=== PATIENT | female | born 1965 | race Hispanic/Latino ===

== ENCOUNTER 2021-03-20 20:14 | Inpatient (IN) | payer MEDICARE, MEDICAID ==
[2021-03-20] MEDS ORDERED: Nitroglycerin 0.4 MG TAB 1 EACH ONE ×2 (20:33→20:35)
[2021-03-20] MEDS ORDERED: Nitroglycerin 2% Ointment 1 INCH/1 GM Packet ONE (20:33)
[2021-03-20] MEDS ORDERED: Furosemide 40 MG/4 ML VIAL ONE (20:33)
[2021-03-20 20:35] LABS: #Basophils 0.1 thou/uL (0.0-0.2); #Eosinphils 0.3 thou/uL (0.0-0.7); #Lymphocytes 3.8 thou/uL (1.20-3.40); #Monocytes 0.4 thou/uL (0.11-0.59); %Basophils 0.6 % (0.0-1.0); %Eosinophils 2.2 % (0.0-10.0); %Lymphocytes 32.7 % (21.0-51.0); %Monocytes 3.5 % (0.0-10.0); Hemoglobin 15.5 g/dL (12.0-16.0); Mean Corpuscular HGB CONC 34.2 g/dL (32.0-36.0); Mean Corpuscular Hemoglobin 29.6 pg (27.0-31.0); Mean Corpuscular Volume 86.5 fL (78.0-98.0); Mean Platelet Volume 8.6 fL (7.4-10.4); Platelet Count 298 thou/uL (130-400); RBC Distribution Width 13.4 % (11.5-14.5); Red Blood Cell (RBC) Count 5.25 mill/uL (4.20-5.40); White Blood Cell (WBC) Count 11.5 thou/uL (4.8-10.8)
[2021-03-20 20:56] LABS: ALT (SGPT) 13 U/L (8-55); AST (SGOT) 13 U/L (5-34); Albumin 3.8 g/dL (3.5-5.0); Alkaline Phosphatase 137 U/L (40-110); Anion Gap 15 mmol/L (10-20); BUN (Urea Nitrogen) 18 mg/dL (9.8-20.1); Bilirubin, Total 0.8 mg/dL (0.2-1.2); Calc. Creatinine Clearance 0 mL/min (70-130); Calcium 8.9 mg/dL (7.8-10.44); Carbon Dioxide 24 mmol/L (22-29); Chloride 101 mmol/L (98-107); Globulin 3.5 g/dL (2.4-3.5); Glucose 361 mg/dL (70-105); Potassium 3.9 mmol/L (3.5-5.1); Protein, Total 7.3 g/dL (6.0-8.3); Sodium 136 mmol/L (136-145)
[2021-03-20] MEDS ORDERED: Ondansetron ODT 4 MG TAB PO PRN (22:54)
[2021-03-20] MEDS ORDERED: Ondansetron PF 4 MG/2 ML Vial IVP PRN (22:54)
[2021-03-20] MEDS ORDERED: Dextrose 5% in Water 1,000 ML IV PRN (22:54)
[2021-03-20] MEDS ORDERED: Acetaminophen 325 MG TAB PO PRN (22:54)
[2021-03-20] MEDS ORDERED: Acetaminophen 650 MG Suppository PR PRN (22:54)
[2021-03-20] MEDS ORDERED: Dextrose 50% Abboject 50 ML SYRINGE SLOW IVP PRN (22:54)
[2021-03-20 23:06] LABS: SARS-CoV-2 NAA Rapid Test Not Detected (NotDetected)
[2021-03-21 00:17] VITALS: BMI 38.2
[2021-03-21] MEDS: HumaLOG 300 UNITS/3 ML VIAL SC PRN ×4 (00:51→21:45)
[2021-03-21 06:57] LABS: #Lymphocytes 0.6 thou/uL (1.20-3.40); #Monocytes 0.1 thou/uL (0.11-0.59); %Basophils 0.2 % (0.0-1.0); %Eosinophils 0.1 % (0.0-10.0); %Lymphocytes 7.3 % (21.0-51.0); %Monocytes 1.3 % (0.0-10.0); %Neutrophils 91.1 % (42.0-75.0); Hemoglobin 13.2 g/dL (12.0-16.0); Mean Corpuscular HGB CONC 32.7 g/dL (32.0-36.0); Mean Corpuscular Hemoglobin 28.5 pg (27.0-31.0); Mean Corpuscular Volume 87.4 fL (78.0-98.0); Mean Platelet Volume 8.6 fL (7.4-10.4); Platelet Count 300 thou/uL (130-400); RBC Distribution Width 13.3 % (11.5-14.5); Red Blood Cell (RBC) Count 4.61 mill/uL (4.20-5.40); White Blood Cell (WBC) Count 8.7 thou/uL (4.8-10.8)
[2021-03-21 07:16] LABS: Anion Gap 14 mmol/L (10-20); BUN (Urea Nitrogen) 29 mg/dL (9.8-20.1); Calc. Creatinine Clearance 95 mL/min (70-130); Calcium 8.8 mg/dL (7.8-10.44); Carbon Dioxide 25 mmol/L (22-29); Chloride 99 mmol/L (98-107); Glucose 434 mg/dL (70-105); Potassium 4.1 mmol/L (3.5-5.1); Sodium 134 mmol/L (136-145)
[2021-03-21] MEDS: cefTRIAXone\\ROCEPHIN 1 GM in Sodium Chloride 0.9% 100 ML IVPB SCH (08:38)
[2021-03-21] MEDS: Furosemide 40 MG/4 ML VIAL SLOW IVP SCH (08:39)
[2021-03-21] MEDS: methylPREDNISolone Sod Succ 40 MG VIAL IVP SCH (08:39)
[2021-03-21] MEDS: Enoxaparin Sodium 40 MG/0.4 ML SYRINGE SC SCH (08:39)
[2021-03-21] MEDS: Azithromycin 500 MG in Sodium Chloride 0.9% 250 ML 250 ML IVPB SCH (11:22)
[2021-03-21] MEDS ORDERED: hydrALAZINE 20 MG/ML VIAL SLOW IVP PRN (12:52)
[2021-03-21] MEDS ORDERED: HumaLOG 300 UNITS/3 ML VIAL SC SCH (14:00)
[2021-03-21] MEDS: metFORMIN 500 MG TAB PO SCH (17:07)
[2021-03-21] MEDS: Trospium 20 MG TAB PO SCH (21:43)
[2021-03-21] MEDS: Metoprolol Tartrate 25 MG TAB PO SCH (21:43)
[2021-03-22] MEDS: HumaLOG 300 UNITS/3 ML VIAL SC PRN ×3 (06:35→21:18)
[2021-03-22] MEDS: Enoxaparin Sodium 40 MG/0.4 ML SYRINGE SC SCH (08:35)
[2021-03-22] MEDS: cefTRIAXone\\ROCEPHIN 1 GM in Sodium Chloride 0.9% 100 ML IVPB SCH (08:36)
[2021-03-22] MEDS: Furosemide 40 MG/4 ML VIAL SLOW IVP SCH (08:37)
[2021-03-22] MEDS: Atorvastatin Calcium 40 MG TAB PO SCH (08:37)
[2021-03-22] MEDS: methylPREDNISolone Sod Succ 40 MG VIAL IVP SCH (08:37)
[2021-03-22] MEDS: metFORMIN 500 MG TAB PO SCH ×2 (08:38→17:04)
[2021-03-22] MEDS: Amlodipine 10 MG TAB PO SCH (08:38)
[2021-03-22] MEDS: Trospium 20 MG TAB PO SCH ×2 (08:38→21:15)
[2021-03-22] MEDS: Metoprolol Tartrate 25 MG TAB PO SCH ×2 (08:39→21:15)
[2021-03-22] MEDS: FLUoxetine HCl 10 MG CAP PO SCH (08:39)
[2021-03-22] MEDS: Azithromycin 500 MG in Sodium Chloride 0.9% 250 ML 250 ML IVPB SCH (09:44)
[2021-03-22] MEDS ORDERED: HumaLOG 300 UNITS/3 ML VIAL SC SCH (18:00)
[2021-03-22] MEDS ORDERED: Lantus 1000 UNITS/10 ML VIAL SC SCH (20:30)
[2021-03-23] MEDS: HumaLOG 300 UNITS/3 ML VIAL SC PRN ×3 (06:04→17:41)
[2021-03-23] MEDS: FLUoxetine HCl 10 MG CAP PO SCH (09:34)
[2021-03-23] MEDS: metFORMIN 500 MG TAB PO SCH ×2 (09:35→17:45)
[2021-03-23] MEDS: Empagliflozin 10 MG TAB PO SCH (09:35)
[2021-03-23] MEDS: Amlodipine 10 MG TAB PO SCH (09:35)
[2021-03-23] MEDS: Trospium 20 MG TAB PO SCH ×2 (09:35→20:51)
[2021-03-23] MEDS: Atorvastatin Calcium 40 MG TAB PO SCH (09:36)
[2021-03-23] MEDS: Metoprolol Tartrate 25 MG TAB PO SCH ×2 (09:36→20:51)
[2021-03-23] MEDS: Furosemide 40 MG/4 ML VIAL SLOW IVP SCH (09:36)
[2021-03-23] MEDS: methylPREDNISolone Sod Succ 40 MG VIAL IVP SCH (09:36)
[2021-03-23] MEDS: HumaLOG 300 UNITS/3 ML VIAL SC SCH ×3 (09:37→17:41)
[2021-03-23] MEDS: cefTRIAXone\\ROCEPHIN 1 GM in Sodium Chloride 0.9% 100 ML IVPB SCH (09:42)
[2021-03-23] MEDS: Enoxaparin Sodium 40 MG/0.4 ML SYRINGE SC SCH (09:42)
[2021-03-23] MEDS: Azithromycin 500 MG in Sodium Chloride 0.9% 250 ML 250 ML IVPB SCH (09:43)
[2021-03-23] MEDS ORDERED: Lantus 1000 UNITS/10 ML VIAL SC SCH (21:00)
[2021-03-24 04:48] LABS: Cardiac Risk 3.3 (Less than 4.5)
[2021-03-24] MEDS: metFORMIN 500 MG TAB PO SCH (08:07)
[2021-03-24] MEDS: FLUoxetine HCl 10 MG CAP PO SCH (08:07)
[2021-03-24] MEDS: Trospium 20 MG TAB PO SCH (08:07)
[2021-03-24] MEDS: Amlodipine 10 MG TAB PO SCH (08:07)
[2021-03-24] MEDS: Metoprolol Tartrate 25 MG TAB PO SCH (08:07)
[2021-03-24] MEDS: Enoxaparin Sodium 40 MG/0.4 ML SYRINGE SC SCH (08:07)
[2021-03-24] MEDS: Furosemide 40 MG/4 ML VIAL SLOW IVP SCH (08:08)
[2021-03-24] MEDS: Atorvastatin Calcium 40 MG TAB PO SCH (08:08)
[2021-03-24] MEDS: cefTRIAXone\\ROCEPHIN 1 GM in Sodium Chloride 0.9% 100 ML IVPB SCH (08:08)
[2021-03-24] MEDS: Empagliflozin 10 MG TAB PO SCH (08:08)
[2021-03-24] MEDS: Azithromycin 500 MG in Sodium Chloride 0.9% 250 ML 250 ML IVPB SCH (08:09)
[2021-03-24] MEDS: methylPREDNISolone Sod Succ 40 MG VIAL IVP SCH (08:09)
[2021-03-24] MEDS: HumaLOG 300 UNITS/3 ML VIAL SC SCH ×2 (08:10→11:37)
[2021-03-24] MEDS ORDERED: Metoprolol Tartrate 100 MG TAB PO SCH (09:00)
[2021-03-24] MEDS ORDERED: Cefdinir 300 MG CAP PO SCH ×2 (09:45→21:00)
[2021-03-24 12:22] VITALS: BP 124/63; TEMP 97.5
== END 2021-03-24 15:55 | disposition home or self-care (01) | DRG 193 ==
LOC: ERS 20:14 → EDBD 20:14 → ERHOLD 21:40 → 2NO 03-21 00:30
PROVIDERS: ADMIT Student in an Organized Health Care Education/Training Program; ATTEND Internal Medicine
PROC: 8E0ZXY6 Isolation (ICD-10-PCS; principal; 2021-03-20)
PROC: 5A09357 Assistance with Respiratory Ventilation, Less than 24 Consecutive Hours, Continuous Positive Airway Pressure (ICD-10-PCS; 2021-03-20)
DX: J18.9 Pneumonia, unspecified organism (principal); J96.01 Acute respiratory failure with hypoxia; I50.31 Acute diastolic (congestive) heart failure; E87.1 Hypo-osmolality and hyponatremia; E78.5 Hyperlipidemia, unspecified; Z23 Encounter for immunization; Z20.822 Contact with and (suspected) exposure to COVID-19; I08.1 Rheumatic disorders of both mitral and tricuspid valves; E11.69 Type 2 diabetes mellitus with other specified complication; I25.10 Atherosclerotic heart disease of native coronary artery without angina pectoris; G47.33 Obstructive sleep apnea (adult) (pediatric); E66.9 Obesity, unspecified; E11.65 Type 2 diabetes mellitus with hyperglycemia; Z95.5 Presence of coronary angioplasty implant and graft; Z91.14 Patient's other noncompliance with medication regimen; Z68.38 Body mass index [BMI] 38.0-38.9, adult; Z79.84 Long term (current) use of oral hypoglycemic drugs; Z79.4 Long term (current) use of insulin; Z79.899 Other long term (current) drug therapy
CPT/HCPCS: 36415; 36416; 71045; 71250; 80048; 80053; 80061; 83880; 84484; 85025; 93005; 93306; 93798; 94640; 94660; 96374; J0360; J0456; J0696; J1650; J1815; J1940; J2920; J3490; J7050; J7620; U0002